=== PATIENT | male | born 1960 | race Caucasian/White ===

== ENCOUNTER 2020-12-27 07:55 | Day surgery (SDC) | payer BC ==
[2020-12-27] MEDS ORDERED: Cyanocobalamin (Vitamin B12) 1,000 MCG/ML SDV IM ONE (08:00)
[2020-12-27] MEDS ORDERED: Propofol 200 MG/20 ML SDV ONE (08:05)
[2020-12-27] MEDS ORDERED: Midazolam 1 MG/ML 2 ML SDV ONE (08:05)
[2020-12-27] MEDS ORDERED: fentaNYL 100 MCG/2 ML SDV ONE (08:05)
[2020-12-27] MEDS ORDERED: Lactated Ringers 1,000 ML IV SCH (09:00)
[2020-12-27] MEDS ORDERED: Glycopyrrolate 0.2 MG/ML 2 ML SDV IVPUSH ONE (09:30)
--- NOTE | 2020-12-31 10:23 | OR ---
DATE OF PROCEDURE: 12/27/2020 SURGEON: Errol Hicks MD PREOPERATIVE DIAGNOSIS: History of previous gastric stapling with recurrent severe morbid obesity. POSTOPERATIVE DIAGNOSIS: Previously performed gastric partitioning procedure with complete destruction of staple line with attendant recurrence of morbid obesity. OPERATIVE PROCEDURE: Esophagogastroduodenoscopy with antral biopsies for CLOtest. ANESTHESIA: IV sedation. INDICATIONS FOR PROCEDURE: This is a 60-year-old status post gastric partitioning procedure done in [place], [place] in 1981. He has had weight regain problems and plan is to proceed with upper endoscopy investigate his upper GI anatomy. Potential risks including bleeding and perforation were discussed, and the patient wishes to proceed. DETAILS OF PROCEDURE: The patient was taken to the operating room and placed in a left lateral decubitus position. IV sedation was administered after which the upper GI endoscope was passed orally through the length of the esophagus and the stomach with retroflexion view of the fundus, thereafter through the pyloric channel and into the proximal duodenum. Findings included some sutures placed in the middle of the stomach where he likely has had the opening at his gastric partitioning location. However, there was a complete disruption of the staple line with there essentially being no partitioning whatsoever in the stomach stitches appearing to be "normal." Other than for some antral gastritis, pyloric channel and visualized portion of the duodenum were unremarkable. Biopsies were obtained from the antrum and sent for CLOtest for H. pylori. Minimal bleeding from the biopsy site was seen and the procedure then concluded. The patient was taken to the recovery room in satisfactory condition. Errol Hicks MD /[id number]
== END 2020-12-27 11:25 | disposition home or self-care (01) ==
LOC: JP.SDS 07:55
PROVIDERS: ATTEND Surgery
DX: K91.89 Other postprocedural complications and disorders of digestive system (principal); K29.70 Gastritis, unspecified, without bleeding; E66.01 Morbid (severe) obesity due to excess calories; I10 Essential (primary) hypertension; G47.33 Obstructive sleep apnea (adult) (pediatric); Z91.013 Allergy to seafood; Z98.890 Other specified postprocedural states; Z79.899 Other long term (current) drug therapy; Z87.890 Personal history of sex reassignment; Z68.42 Body mass index [BMI] 45.0-49.9, adult
CPT/HCPCS: 43239; 87081; J2250; J2704; J3010; J3420; J3490; J7120

== ENCOUNTER 2021-03-25 07:15 | Inpatient (IN) | payer BC ==
[2021-03-25] MEDS ORDERED: cefOXitin 2 GM Vial ONE (08:26)
[2021-03-25] MEDS ORDERED: Celecoxib 200 MG Cap PO ONE (09:50)
[2021-03-25] MEDS ORDERED: Scopolamine 1.5 MG Transdermal Patch TOP SCH (09:50)
[2021-03-25] MEDS ORDERED: Acetaminophen 500 MG Tab PO ONE (09:50)
[2021-03-25] MEDS ORDERED: Neostigmine Methylsulfate 1 MG/ML 5 ML Syringe ONE (10:07)
[2021-03-25] MEDS ORDERED: Dexamethasone 4 MG/ML SDV ONE (10:07)
[2021-03-25] MEDS ORDERED: Ondansetron 4 MG/2 ML SDV ONE (10:07)
[2021-03-25] MEDS ORDERED: Rocuronium 50 MG/5 ML Vial ONE ×2 (10:07→14:20)
[2021-03-25] MEDS ORDERED: Propofol 200 MG/20 ML SDV ONE (10:07)
[2021-03-25] MEDS ORDERED: Succinylcholine 200 MG/10 ML MDV ONE (10:07)
[2021-03-25] MEDS ORDERED: fentaNYL 250 MCG/5 ML SDV ONE ×2 (10:07→13:26)
[2021-03-25] MEDS ORDERED: Glycopyrrolate 0.2 MG/ML 5 ML MDV ONE (10:07)
[2021-03-25] MEDS: Dextrose 5%-Lactated Ringers 1,000 ML IV SCH ×3 (10:19→22:51)
[2021-03-25] MEDS ORDERED: Magnesium Sulfate 4.8 GM in Sodium Chloride 0.9% 250 ML IV ONE ×2 (11:45)
[2021-03-25] MEDS ORDERED: Magnesium Sulfate 4.5 GM in Sodium Chloride 0.9% 100 ML IV SCH ×2 (11:45)
[2021-03-25] MEDS ORDERED: Ketamine 500 MG/5 ML MDV IV SCH (11:45)
[2021-03-25] MEDS ORDERED: Ketamine 50 MG in Sodium Chloride 0.9% 49.5 ML IV SCH (11:45)
[2021-03-25] MEDS: cefOXitin 2 GM in Sodium Chloride 0.9% 50 ML IV ONE ×2 (13:07→18:01)
[2021-03-25] MEDS ORDERED: HYDROmorphone/Normal Saline 15 MG/30 ML PCA IV PRN (17:20)
[2021-03-25] MEDS ORDERED: Naloxone 0.4 MG/ML SDV IV PRN (18:00)
[2021-03-25] MEDS ORDERED: Lactated Ringers 750 ML IV ONE (20:29)
[2021-03-25] MEDS ORDERED: Tranexamic Acid 1,000 MG in Sodium Chloride 0.9% 100 ML IV ONE ×2 (20:30→22:30)
[2021-03-25] MEDS ORDERED: Ondansetron 4 MG/2 ML SDV IVPUSH PRN (21:11)
[2021-03-25] MEDS ORDERED: diphenhydrAMINE 50 MG/ML SDV IVPUSH PRN (21:11)
[2021-03-25] MEDS ORDERED: Cyclobenzaprine 10 MG Tab PO PRN (21:11)
[2021-03-25] MEDS ORDERED: Metoclopramide 10 MG/2 ML SDV IV PRN (21:11)
[2021-03-25] MEDS ORDERED: Labetalol 100 MG/20 ML MDV IVPUSH PRN (21:11)
[2021-03-25] MEDS ORDERED: Calcium Gluconate 10% 1 GM/10 ML SDV IVPUSH PRN (21:11)
[2021-03-25] MEDS ORDERED: MVI, Adult with Vitamin K 10 ML, Thiamine 200 MG, Chromium/Copper/Mang/Selen/Zn 1 ML in... IV SCH ×4 (21:13)
[2021-03-25] MEDS ORDERED: Acetaminophen 500 MG Tab PO SCH (21:15)
[2021-03-25] MEDS: Acetaminophen Soln 650 MG/20.3 ML UD Cup PO SCH (22:03)
[2021-03-25] MEDS: cefOXitin 2 GM in Sodium Chloride 0.9% 50 ML IV SCH (22:03)
[2021-03-25] MEDS ORDERED: Coagulation Factor VIIa Recombinant (per MCG) 2 MG Vial IVPUSH ONE ×3 (23:17→23:45)
[2021-03-26] MEDS ORDERED: Iopamidol 612 MG/ML 50 ML SDV PO STA (04:25)
[2021-03-26] MEDS: cefOXitin 2 GM in Sodium Chloride 0.9% 50 ML IV SCH ×4 (04:30→21:15)
[2021-03-26] MEDS: Acetaminophen Soln 650 MG/20.3 ML UD Cup PO SCH ×3 (04:56→21:15)
[2021-03-26] MEDS: Dextrose 5%-Lactated Ringers 1,000 ML IV SCH ×3 (05:03→17:51)
--- NOTE | 2021-03-26 06:09 | CRLCR ---
Indication: Nkechi-en-Y gastric bypass surgery Technique: Upper GI 3 views Comparison: None Findings/Impression: Oral contrast passes through the gastric bypass into small bowel. No obstructive changes. No sign of contrast extravasation/leak. Dictated by Deon Shelley MD @ 03/26/2021 6:07:[address] Deon Shelley @ Mar 26 2021 6:07AM
[2021-03-26] MEDS ORDERED: Acetaminophen 500 MG Tab PO PRN (08:00)
[2021-03-26] MEDS ORDERED: Labetalol 20 MG/4 ML Syringe IVPUSH PRN (08:00)
[2021-03-26] MEDS ORDERED: Ondansetron 4 MG Tab.DIS PO PRN (08:03)
[2021-03-26] MEDS ORDERED: Pantoprazole 40 MG Vial IVPUSH SCH (09:00)
[2021-03-26] MEDS: SCOPOLAMINE PATCH CHECK TOP SCH (09:04)
[2021-03-26] MEDS: Celecoxib 200 MG Cap PO SCH ×3 (09:05→20:25)
[2021-03-26] MEDS: Chlorthalidone 25 MG Tab PO SCH (09:23)
[2021-03-26] MEDS: Losartan 50 MG Tab PO SCH ×2 (09:23→09:24)
[2021-03-26] MEDS: MVI, Adult with Vitamin K 10 ML, Thiamine 200 MG, Chromium/Copper/Mang/Selen/Zn 1 ML in... IV SCH ×4 (12:23)
--- NOTE | 2021-03-26 12:23 | PN ---
DATE OF SERVICE: 03/26/2021 SUBJECTIVE: Iván is postop day 1. His upper GI looked good. Oral intake 650. Urine output via Cisneros catheter is 1415. TYRELL drain was 242. He was hypotensive during the night. Blood pressure was 60/30. He was given tranexamic acid and factor VII and 1 unit of packed red blood cells. This morning, his vital signs are stable. Pain is controlled. He states he does not have much for pain. Hemoglobin on admission was 15.2, and this morning at 0400 was 12.1. Creatinine went up to 1.4, glucose was 189. He has no questions or concerns today. OBJECTIVE: GENERAL: Iván Aguilar is a pleasant 60-year-old male. He is alert and oriented. VITAL SIGNS: TPR 97.5, 80, 18, blood pressure 94/72. HEENT: Negative. NECK: Supple. HEART: Regular rate and rhythm. LUNGS: Clear. ABDOMEN: Dressing dry and intact. Aquacel is on. He does have a TYRELL drain, which is dark red and put out 242 over the past 24 hours. EXTREMITIES: Without peripheral edema. ASSESSMENT: 1. Exploratory laparotomy with lysis of adhesions. 2. Esophagogastrectomy with Nkechi-en-Y. 3. Esophagojejunostomy. 4. Small bowel resection. 5. 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 POSTOPERATIVE DIAGNOSES: 1. Morbid obesity, status post previous gastric stapling with severe inflammation in the proximal stomach, esophagogastrojejunostomy. 2. Area of small bowel deserosalized with takedown of adhesions. 3. Ectopic xiphoid, upper aspect of previous incision. PLAN: 1. Decrease IV to 100 mL/hr at 4 p.m. 2. Check CBC, CMP, mag, phos, BNP in a.m. 3. Continue step-1 gastric bypass diet. 4. Start aspirin 81 mg today, and communication order is written to ask regarding heparin in the morning. 5. Leave Cisneros catheter in for accurate intake and output. 6. We will evaluate p.r.n. or in a.m. Angela Conner PA-C /[id number]
[2021-03-26] MEDS: Aspirin 81 MG Tab.Chew PO SCH (20:25)
[2021-03-27] MEDS: cefOXitin 2 GM in Sodium Chloride 0.9% 50 ML IV SCH ×3 (02:44→14:54)
[2021-03-27] MEDS: Acetaminophen Soln 650 MG/20.3 ML UD Cup PO SCH ×3 (04:35→21:54)
[2021-03-27] MEDS: Dextrose 5%-Lactated Ringers 1,000 ML IV SCH (05:01)
[2021-03-27] MEDS: Pantoprazole 40 MG Delayed-Release Granules 1 Packet PO SCH (07:34)
[2021-03-27] MEDS: HYDROmorphone 2 MG Tab PO PRN ×4 (07:48→21:57)
[2021-03-27] MEDS ORDERED: Cyanocobalamin (Vitamin B12) 1,000 MCG/ML SDV IM ONE (09:00)
[2021-03-27] MEDS: Losartan 50 MG Tab PO SCH (09:55)
[2021-03-27] MEDS: Docusate Sodium 100 MG Cap PO SCH ×2 (09:57→21:54)
[2021-03-27] MEDS: Bisacodyl 5 MG Tab PO SCH ×2 (09:57→21:54)
[2021-03-27] MEDS: Chlorthalidone 25 MG Tab PO SCH (09:57)
[2021-03-27] MEDS: Celecoxib 200 MG Cap PO SCH ×2 (09:57→21:54)
[2021-03-27] MEDS: MVI, Adult with Vitamin K 10 ML, Thiamine 200 MG, Chromium/Copper/Mang/Selen/Zn 1 ML in... IV SCH ×4 (10:00)
[2021-03-27] MEDS: SCOPOLAMINE PATCH CHECK TOP SCH (10:07)
--- NOTE | 2021-03-27 14:11 | PN ---
DATE OF SERVICE: 03/27/2021 SUBJECTIVE: Iván states he is doing much better today. Hemoglobin 9.2. Oral intake 1840. Urine output via Cisneros catheter is 2100. TYRELL drain put out 135 of a light red drainage. REVIEW OF SYSTEMS: Remainder of review of systems negative for any pertinent positives and negatives. OBJECTIVE: GENERAL: Iván Aguilar is a pleasant 60-year-old female. VITAL SIGNS: TPR 99.2, 78, 16, blood pressure 131/45. HEENT: Negative. NECK: Supple. HEART: Regular rate and rhythm. LUNGS: Clear. ABDOMEN: Aquacel dressing is on. TYRELL drain as above. Abdominal binder is on. EXTREMITIES: Without peripheral edema. ASSESSMENT: 1. Exploratory laparotomy with lysis of adhesions. 2. Esophagogastrectomy with Nkechi-en-Y. 3. Esophagojejunostomy. 4. Small-bowel resection. 5. Reduction of ectopic xiphoid process of abdominal wall. POSTOPERATIVE DIAGNOSES: 1. Morbid obesity, status post previous gastric stapling with severe inflammation in the proximal stomach, esophagogastrojejunostomy. 2. Area of small bowel deserosalized with takedown of adhesions. 3. Ectopic xiphoid, upper aspect of previous incision. PLAN: 1. Discontinue NIGHT SHIFT SUPERVISOR and continuous pulse ox. 2. Dilaudid 2 to 4 mg every 4 hours p.r.n. pain. 3. Discontinue Cisneros catheter. 4. Step 2 gastric bypass diet without cereal. 5. Dulcolax tablets 10 mg b.i.d. 6. Colace 100 mg p.o. b.i.d. 7. Continue use of incentive spirometer. 8. We will evaluate p.r.n. or in a.m. Angela Conner PA-C /[id number]
[2021-03-27] MEDS ORDERED: Polyethylene Glycol 3350 Powder 17 GM Packet PO PRN (14:40)
[2021-03-27] MEDS: Aspirin 81 MG Tab.Chew PO SCH (21:54)
[2021-03-28] MEDS: Acetaminophen Soln 650 MG/20.3 ML UD Cup PO SCH ×3 (05:41→20:37)
[2021-03-28] MEDS: Pantoprazole 40 MG Delayed-Release Granules 1 Packet PO SCH (07:31)
[2021-03-28] MEDS: HYDROmorphone 2 MG Tab PO PRN (07:36)
[2021-03-28] MEDS: Celecoxib 200 MG Cap PO SCH ×2 (08:36→20:37)
[2021-03-28] MEDS: SCOPOLAMINE PATCH CHECK TOP SCH (08:36)
[2021-03-28] MEDS: Bisacodyl 5 MG Tab PO SCH ×2 (08:36→20:37)
[2021-03-28] MEDS: Chlorthalidone 25 MG Tab PO SCH (08:36)
[2021-03-28] MEDS: Losartan 50 MG Tab PO SCH (08:36)
[2021-03-28] MEDS: Docusate Sodium 100 MG Cap PO SCH ×2 (08:36→20:37)
--- NOTE | 2021-03-28 08:44 | PN ---
DATE OF SERVICE: 03/28/2021 SUBJECTIVE: Iván had a total oral intake of 2140. Urine output 1200. TYRELL drain put out 70 mL of a light red drainage. Vital signs have been stable. Lab reports this morning show hemoglobin of 8.5 and potassium 3.5. REVIEW OF SYSTEMS: Remainder of review of systems negative for any pertinent positives and negatives. OBJECTIVE: GENERAL: Iván Aguilar is a pleasant 60-year-old male. He is alert and orientated. He sitting up in the chair. VITAL SIGNS: TPR; 97.5, 72, 14, and blood pressure 123/57. HEENT: Negative. NECK: Supple. HEART: Regular rate and rhythm. LUNGS: Clear. ABDOMEN: Aquacel dressings on dry and intact. EXTREMITIES: Without peripheral edema. ASSESSMENT: 1. Exploratory laparotomy with lysis of adhesions. 2. Esophagogastrectomy with Nkechi-en-Y. 3. Esophagojejunostomy. 4. Small bowel resection. 5. Reduction of ectopic xiphoid process of abdominal wall. POSTOPERATIVE DIAGNOSES: 1. Morbid obesity, status post previous gastric stapling with severe inflammation in the proximal stomach, esophagogastrojujenostomy. 2. Area of small bowel deserosalization with takedown of adhesions. 3. Ectopics, xiphoid, upper aspect of previous incision. 4. Date of procedure: 03/25/2021. PLAN: 1. Give 1 unit of packed red blood cells. 2. K-Phos 45 millimoles IV 1 time. 3. Check CBC, CMP, mag, phos, and BNP in the a.m. 4. We will evaluate p.r.n. or in the a.m. Angela Conner PA-C /[id number]
[2021-03-28] MEDS: Potassium Phos in 0.9 % NaCl 15 MMOL in Premix Bag 1 BAG IV SCH ×6 (10:49→15:47)
[2021-03-28] MEDS: Aspirin 81 MG Tab.Chew PO SCH (20:37)
[2021-03-29] MEDS: Acetaminophen Soln 650 MG/20.3 ML UD Cup PO SCH (04:43)
[2021-03-29] MEDS: Pantoprazole 40 MG Delayed-Release Granules 1 Packet PO SCH (07:38)
[2021-03-29] MEDS: Docusate Sodium 100 MG Cap PO SCH (08:13)
[2021-03-29] MEDS: Chlorthalidone 25 MG Tab PO SCH (08:13)
[2021-03-29] MEDS: Losartan 50 MG Tab PO SCH (08:13)
[2021-03-29] MEDS: Bisacodyl 5 MG Tab PO SCH (08:13)
[2021-03-29] MEDS: Celecoxib 200 MG Cap PO SCH (08:13)
--- NOTE | 2021-03-29 10:40 | DISCH ---
ADMISSION DIAGNOSES: 1. Morbid obesity. 2. Body mass index 46.8. 3. Obstructive sleep apnea. 4. Hypertension. DISCHARGE DIAGNOSES: 1. Exploratory laparotomy with lysis of adhesions. 2. Esophagogastrectomy with Nkechi-en-Y. 3. Esophagojejunostomy. 4. Small bowel resection. 5. 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 POSTOPERATIVE DIAGNOSES: 1. Morbid obesity status post gastric stapling with severe inflammation in the proximal stomach. 2. Area of small bowel deserosalization with takedown of adhesions. 3. Ectopic xiphoid upper aspect of previous incision. Date of procedure 03/25/2021. Surgeon: Errol Hicks MD. HISTORY: Iván Aguilar is a pleasant 60-year-old male who had a previous gastric stapling with weight regain. After preoperative evaluation and discussion of possible risks and possible complications, he wished to proceed with surgical procedure. HOSPITAL COURSE: Iván had his surgery on 03/25/2021. He had increased bleeding operative night and was given factor VII, tranexamic acid, and 1 unit of packed red blood cells. Postop day 1, vital signs were stable. He was alert, oriented. Pain was controlled. Hemoglobin on admission was 15.2 and was 12.1, 1st postop day. Creatinine was 1.4. His upper GI was normal. He was started on a step-1 gastric bypass diet. IV was decreased, and his heparin was decreased, but he was started on aspirin 1 daily. On postop day 2, his diet was advanced to step-2 gastric bypass diet without cereal. 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 He was started on oral pain medication and given bowel stimulation. Hemoglobin was 9. On postop day 3, his oral intake and output were adequate. Hemoglobin was 8.5 and potassium was 3.5. He was given 1 unit of packed red blood cells, K-Phos 45 mmol. On 03/29/2021, he was able to be discharged to home. Vital signs stable. Activity good and he received adequate nutritional education. Hemoglobin on day of discharge was 10. PHYSICAL EXAMINATION: GENERAL: Iván Aguilar is a pleasant 60-year-old male. He is alert and oriented. VITAL SIGNS: TPR is 95.7, 72, 16, blood pressure 165/81. HEENT: Negative. NECK: Supple. HEART: Regular rate and rhythm. LUNGS: Clear. ABDOMEN: Aquacel dressings on. Abdominal binder is on. TYRELL drain will be removed prior to discharge. EXTREMITIES: Without peripheral edema. DISPOSITION: Discharged to home. CONDITION: Stable and improving. FOLLOWUP APPOINTMENT: With Angela Conner PA-C, on 04/04/2021 at 9 a.m. To check a CBC prior to that appointment. HOME MEDICATIONS: Zofran ODT 4 mg p.o. q.4 hours p.r.n. nausea, #30. He is to start taking Celebrex 200 mg p.o. b.i.d., Tylenol 1000 mg q.8 hours for pain. He is to resume Cozaar 100 mg p.o. daily, Crestor 5 mg at bedtime, and aspirin 81 mg at bedtime. DIET: Step-2 gastric bypass diet with no cereal for 2 weeks. Drink 8 to 10 glasses of water a day. ACTIVITY: No lifting greater than 10 pounds for 6 weeks. OTHER ACTIVITY: Walk 6 times daily. Driving: Do not drive for 1 week. Shower/bathing: May shower. Wound incision care: Keep operative site clean and dry. Wear abdominal binder for 6 weeks if tolerated. Take off Aquacel dressing in 3 days on 04/01/2021. Notify provider if any fever, increased pain, swelling, redness, drainage, nausea, or vomiting. /[id number]
--- NOTE | 2021-04-01 15:15 | OR ---
DATE OF PROCEDURE: 03/25/2021 SURGEON: Errol Hicks MD PREOPERATIVE DIAGNOSIS: Morbid obesity, status post previous gastric partitioning. POSTOPERATIVE DIAGNOSES: 1. Morbid obesity, status post previous gastric partitioning with severe inflammation of proximal stomach and esophagogastric junction. 2. Area of small bowel deserosalization after takedown of dense adhesions. 3. Ectopic xiphoid bone development in the upper aspect of previous midline incision. PROCEDURES PERFORMED: Exploratory laparotomy with extensive lysis of adhesions and: 1. a. Esophagogastrectomy with Nkechi-en-Y esophagojejunostomy. b. Small bowel resection. c. Resection of ectopic xiphoid bone extending from the xiphoid down to the abdominal wall ([id number]). ANESTHESIA: General. RACECOURSE BARRIER ATTENDANT: Angela Conner PA-C INDICATIONS FOR PROCEDURE: A 60-year-old male presenting with persistent morbid obesity, status post previous gastric partitioning procedure done in the . This has been associated with quite a bit in the way of worsening symptoms, and morbid obesity. The plan is to proceed with an open laparotomy with formation of Nkechi-en-Y gastric bypass. The potential risks of the procedure including bleeding, infection, injury to underlying viscera, leaks from various GI tract closures, possible need to extend the proximal end of resection up to the level of the esophagus depending on the quality of the tissues at the esophagogastric junction as well as the remote possibility of cardiopulmonary, septic, or hemorrhagic complications leading to were discussed, and the patient wishes to proceed. DETAILS OF PROCEDURE: The patient was taken to the operating room and placed in a supine position. After general endotracheal anesthesia was induced, a Cisneros catheter was inserted and the abdomen prepped and draped. The previous midline incision was then made from the xiphoid to just above the umbilicus. It was carried down through the full-thickness of the abdominal wall. In the proximal end of the incision, over a length of around 10 to 12 cm, there was ectopic bone formation extending from the xiphoid. This would be a healing some times to see if there has been an injury at the xiphoid at the time of the previous incision, and has healing then becomes overly abundant and extends downward onto the incision. This bony structure was then taken back up more or less flush with the previous expected end of the xiphoid where it was divided, and a small amount of normal pre- existing xiphoid along with the ectopic bone extending below that were from some attachments to the soft tissues and delivered from the field. The incision was then extended further through the remainder of the abdominal wall fascia. At this point, quite extensive adhesions were encountered. These took roughly an hour to get freed up from the surrounding soft tissues, and eventually, then the area of gastric partitioning and surrounding areas were freed up of adhesions. An Skinny tube was passed orally per Anesthesia and the area of the esophagogastric junction then encircled. The previous partitioning procedure appeared to come up more or less flush with the esophagogastric junction on the lateral side, i.e., in the area of the angle of His. Upon dissection of this area, this was extremely inflamed and thinned out, and it was felt that the proximal most stomach typically used for Nkechi-en-Y gastric bypass would not be safe to use as a proximal anastomotic site. Given this, the Skinny tube was pulled back and the distal esophagus divided with 2 firings of the ADA black load. A portion of the proximal stomach was then excised to move the area of the gastric partitioning so as to avoid any blind segments of stomach in that tissue consisting of esophagogastrectomy was then delivered from the field. The area of the ligament of Treitz was then identified and the small bowel then traced out 60 cm distal to that point. At that level, there was a segment of small bowel that had become devascularized and deserosalized secondary to takedown of adhesions in that area. A segment of small bowel was then resected, and the proximal end of this was then used for the end of the biliopancreatic limb and the distal end beginning of the Nkechi limb. Small bowel was then traced out additional 125 cm where the [id number] enteroenterostomy was accomplished with internal firing of the Endo-ADA 60 mm stapler. Common opening was then closed transversely with the same stapler, angles anastomosed, and mesenteric defect approximated with some 3-0 Vicryl stitch. A retrocolic mesenteric opening was then constructed with a combination of blunt and cautery dissection, and the Nkechi limb then came up to the level of the divided esophagus without tension. The anvil of a 25 mm EEA stapler was attached to a [place] sump type tube. The latter was brought down through the mouth and taken out through a small opening in the divided esophagus, and the main body of the EEA stapler was then placed through an opening on the end of the small bowel, brought up the anvil, united with it, thus creating the esophagojejunostomy. Upon removal of the stapler, double donuts of mucosa were noted within it and the small bowel was closed off with a vascular staple line. The esophagojejunostomy was reinforced on its anterior 2/3rds with a 3-0 Vicryl seromuscular stitch and subsequently then with fibrin sealant. The point where the small bowel passed through the transverse mesocolon was then affixed with several interrupted sutures of 3-0 Vicryl stitch, and the jejunojejunostomy was then also reinforced with some fibrin sealant. The abdomen was irrigated with antibiotic- containing saline solution. Two Cliff-Lynn drains were then placed through stab wounds in the left subcostal area and positioned at and around the esophagojejunostomy, from there, up into the splenic fossa. The midline fascia was then approximated with a #2 Vicryl stitch, subcutaneous tissue with 4-0 Vicryl stitch, and the skin with keely. A dressing was applied. The patient was taken to the recovery room in satisfactory condition. Prior to closure, bilateral transversus abdominis plane blocks had also been placed. Physician assistant real estate manager, Angela Conner, played an essential role in assisting in this case, helping to position the patient, retract structures as needed, as well as suturing and cutting sutures when indicated. Her presence improved patient safety and decreased operative time. Errol Hicks MD /[id number]
== END 2021-03-29 08:39 | disposition home or self-care (01) | DRG 950 ==
LOC: EDSTATUS 07:15 → JP.SDS 09:22 → JP.SDSSCHI 16:59 → JP.2SS 17:00
PROVIDERS: ADMIT Surgery; ATTEND Surgery
PROC: 0DT60ZZ Resection of Stomach, Open Approach (ICD-10-PCS; principal; 2021-03-25)
PROC: 0DT80ZZ Resection of Small Intestine, Open Approach (ICD-10-PCS; principal; 2021-03-25)
PROC: 0PB00ZZ Excision of Sternum, Open Approach (ICD-10-PCS; principal; 2021-03-25)
PROC: 0D150ZA Bypass Esophagus to Jejunum, Open Approach (ICD-10-PCS; principal; 2021-03-25)
PROC: 0DT Gastrointestinal System, Resection (ICD-10-PCS; principal; 2021-03-25)
PROC: 0DN80ZZ Release Small Intestine, Open Approach (ICD-10-PCS; principal; 2021-03-25)
DX: E66.01 Morbid (severe) obesity due to excess calories (principal); Z68.42 Body mass index [BMI] 45.0-49.9, adult; I10 Essential (primary) hypertension; G47.33 Obstructive sleep apnea (adult) (pediatric); Z88.8 Allergy status to other drugs, medicaments and biological substances; E78.5 Hyperlipidemia, unspecified
CPT/HCPCS: 36415; 36430; 74240; 80053; 83735; 83880; 84100; 85018; 85025; 85027; 86850; 86900; 86901; 86920; 86922; 88304; 88307; 88311; 94762; A9270-GY; C9113; J0171; J0330; J0694; J1100; J1170; J2405; J2704; J2710; J2795; J3010; J3411; J3420; J3475; J3490; J7050; J7120; J7121; J7189; P9016; Q9967

== ENCOUNTER 2021-04-15 13:08 | Inpatient (IN) | payer BC ==
[2021-04-15] MEDS ORDERED: Ondansetron 4 MG Tab.DIS PO PRN (13:33)
[2021-04-15] MEDS ORDERED: Ondansetron 4 MG/2 ML SDV IVPUSH PRN (13:36)
[2021-04-15] MEDS ORDERED: Acetaminophen 325 MG Tab PO PRN (13:38)
[2021-04-15] MEDS ORDERED: Bisacodyl 5 MG Tab PO SCH (14:00)
[2021-04-15] MEDS: Dextrose 5%-Lactated Ringers 1,000 ML IV SCH (14:06)
[2021-04-15] MEDS: Meropenem 1 GM in Sodium Chloride 0.9% 100 ML IV SCH ×2 (14:22→21:08)
[2021-04-15] MEDS: Linezolid 600 MG in Premix Bag 1 BAG IV SCH (14:56)
[2021-04-15] MEDS ORDERED: MVI, Adult with Vitamin K 10 ML, Thiamine 100 MG, Magnesium Sulfate 2 GM, Folic Acid 1 ... IV ONE ×10 (16:00)
[2021-04-15] MEDS: Lactobacillus Rhamnosus GG (Probiotic) Cap PO SCH (21:07)
[2021-04-15] MEDS: Aspirin 81 MG Tab.Chew PO SCH (21:07)
[2021-04-15] MEDS: Bisacodyl 5 MG Tab PO SCH (21:07)
[2021-04-15] MEDS: Rosuvastatin 10 MG Tab PO SCH (21:08)
[2021-04-15] MEDS: Pantoprazole 40 MG Vial IVPUSH SCH (21:08)
[2021-04-16] MEDS ORDERED: Acetaminophen Soln 650 MG/20.3 ML UD Cup PO PRN (00:16)
[2021-04-16] MEDS: Linezolid 600 MG in Premix Bag 1 BAG IV SCH ×2 (02:39→15:57)
[2021-04-16] MEDS: Dextrose 5%-Lactated Ringers 1,000 ML IV SCH ×2 (02:43→10:18)
[2021-04-16] MEDS: Meropenem 1 GM in Sodium Chloride 0.9% 100 ML IV SCH ×3 (05:00→21:06)
[2021-04-16] MEDS: Potassium Chloride 20 MEQ, Lidocaine 1% 2 ML in Sodium Chloride 0.9% 100 ML IV SCH ×2 (07:21→09:27)
[2021-04-16] MEDS ORDERED: fentaNYL 250 MCG/5 ML SDV ONE (07:30)
[2021-04-16] MEDS ORDERED: Propofol 200 MG/20 ML SDV ONE (07:31)
[2021-04-16] MEDS ORDERED: Succinylcholine 200 MG/10 ML MDV ONE (07:31)
[2021-04-16] MEDS ORDERED: Neostigmine Methylsulfate 1 MG/ML 5 ML Syringe ONE (07:31)
[2021-04-16] MEDS ORDERED: Rocuronium 50 MG/5 ML Vial ONE (07:31)
[2021-04-16] MEDS ORDERED: Glycopyrrolate 0.2 MG/ML 5 ML MDV ONE (07:31)
[2021-04-16] MEDS ORDERED: Ondansetron 4 MG/2 ML SDV ONE (07:31)
[2021-04-16] MEDS ORDERED: Dexamethasone 4 MG/ML SDV ONE (07:31)
[2021-04-16] MEDS ORDERED: Meropenem 500 MG SDV ONE (07:35)
[2021-04-16] MEDS ORDERED: Lidocaine 1% with EPINEPHrine 1:100,000 50 ML MDV ONE (07:37)
[2021-04-16] MEDS ORDERED: Ondansetron 4 MG/2 ML SDV IVPUSH PRN (11:40)
[2021-04-16] MEDS ORDERED: diphenhydrAMINE 25 MG Cap PO PRN (11:40)
[2021-04-16] MEDS ORDERED: Naloxone 0.4 MG/ML SDV IVPUSH PRN (11:40)
[2021-04-16] MEDS ORDERED: diphenhydrAMINE 50 MG/ML SDV IVPUSH PRN (11:40)
[2021-04-16] MEDS ORDERED: HYDROmorphone/Normal Saline 15 MG/30 ML PCA IV PRN (11:40)
[2021-04-16] MEDS ORDERED: Naloxone 0.4 MG/ML SDV IV PRN (12:00)
[2021-04-16] MEDS: Potassium Phos in 0.9 % NaCl 15 MMOL in Premix Bag 1 BAG IV SCH ×6 (12:51→19:24)
[2021-04-16] MEDS: Pantoprazole 40 MG Vial IVPUSH SCH ×2 (14:15→21:06)
[2021-04-16] MEDS: Chlorthalidone 25 MG Tab PO SCH (14:24)
[2021-04-16] MEDS: Losartan 50 MG Tab PO SCH (14:24)
[2021-04-16] MEDS: Bisacodyl 5 MG Tab PO SCH (14:25)
[2021-04-16] MEDS: Dextrose 5%-Lactated Ringers 1,000 ML with MVI, Adult with Vitamin K 10 ML, Zinc/Copper... IV SCH ×4 (15:02)
[2021-04-16] MEDS: Lactobacillus Rhamnosus GG (Probiotic) Cap PO SCH ×2 (15:09→21:06)
--- NOTE | 2021-04-16 15:23 | PN ---
DATE OF SERVICE: 04/16/2021 SUBJECTIVE: Iván was admitted yesterday for fever of 101 and redness at his incision site. He did have a temp max of 101.1 around midnight. He was given Tylenol, it did go down to 98.5. Labs this morning; hemoglobin 10.9, potassium is 2.9, chloride is 133, and phosphorus 2.9. He reports he is feeling better once the IV antibiotics started. After rounds this morning, his incision did spontaneously start to drain a cloudy corcoran drainage with foul odor. OBJECTIVE: GENERAL: Iván Aguilar is a 60-year-old male. He is alert and orientated. VITAL SIGNS: TPR is 97.1, 66, 18; blood pressure 110/49. HEENT: Negative. NECK: Supple. HEART: Regular rate and rhythm. LUNGS: Clear. ABDOMEN: The redness has decreased around the incision site. It is currently draining a cloudy corcoran foul-smelling discharge, nontender. EXTREMITIES: Without peripheral edema. ASSESSMENT: 1. Fever. 2. Abdominal wall infection. PLAN: 1. I have consent signed for incision and drainage of abdominal incision with IV and local sedation. Case to follow, 04/16/2021. Surgeon: Errol Hicks MD. KCl 40 mEq IV now. 2. K-Phos 45 mEq IV 1 time. N.p.o. We will evaluate p.r.n. and orders to be written post procedure. Labs ordered in the morning; CBC, CMP, mag, and phos. We will evaluate p.r.n. or in a.m. Angela Conner PA-C /[id number]
[2021-04-16] MEDS ORDERED: HYDROmorphone 2 MG Tab PO PRN (17:47)
[2021-04-16] MEDS: Rosuvastatin 10 MG Tab PO SCH (21:05)
[2021-04-16] MEDS: Aspirin 81 MG Tab.Chew PO SCH (21:06)
[2021-04-17] MEDS: Dextrose 5%-Lactated Ringers 1,000 ML with MVI, Adult with Vitamin K 10 ML, Zinc/Copper... IV SCH ×8 (00:07→08:03)
[2021-04-17] MEDS: Linezolid 600 MG in Premix Bag 1 BAG IV SCH ×2 (03:07→16:54)
[2021-04-17] MEDS: Meropenem 1 GM in Sodium Chloride 0.9% 100 ML IV SCH ×3 (05:50→22:31)
[2021-04-17] MEDS: Chlorthalidone 25 MG Tab PO SCH (09:09)
[2021-04-17] MEDS: Losartan 50 MG Tab PO SCH (09:09)
[2021-04-17] MEDS: Pantoprazole 40 MG Vial IVPUSH SCH (09:10)
[2021-04-17] MEDS: Lactobacillus Rhamnosus GG (Probiotic) Cap PO SCH ×2 (09:10→20:01)
--- NOTE | 2021-04-17 09:15 | PN ---
DATE OF SERVICE: 04/17/2021 SUBJECTIVE: Iván is postop day #1. He reports he has no pain. He has been up ambulating and has been afebrile. REVIEW OF SYSTEMS: Remainder of review of systems negative for any pertinent positives and negatives. OBJECTIVE: GENERAL: Iván Aguilar is a 60-year-old male. He is alert and orientated. VITAL SIGNS: TPR 95, 47, 18, blood pressure 94/49. HEENT: Negative. NECK: Supple. HEART: Regular rate and rhythm. LUNGS: Clear. ABDOMEN: Dressings dry and intact. Abdominal binder is on. EXTREMITIES: Without peripheral edema. ASSESSMENT: Exploratory laparotomy with: 1. Drainage of intraabdominal abscess. 2. Closure of fascial dehiscence. POSTOPERATIVE DIAGNOSIS: Intraabdominal abscess associated with fascial dehiscence. Date of procedure: 04/16/2021. Surgeon: Errol Hciks MD. PLAN: 1. Check CBC, CMP, mag, and phos in a.m. 2. Dressing changes b.i.d., use dry 4x4s to pack dressing and cover with ABDs. 3. Step [address] of abdomen and pelvis with IV contrast only, 0400, 04/18/2021. Continue use of incentive spirometer. 5. We will evaluate p.r.n. or in a.m. Angela Conner PA-C /[id number]
[2021-04-17] MEDS: Pantoprazole 40 MG Tab.CR PO SCH (16:59)
[2021-04-17] MEDS: Dextrose 5%-Lactated Ringers 1,000 ML IV SCH (19:53)
[2021-04-17] MEDS: Aspirin 81 MG Tab.Chew PO SCH (20:01)
[2021-04-17] MEDS: Rosuvastatin 10 MG Tab PO SCH (20:02)
[2021-04-18] MEDS: Linezolid 600 MG in Premix Bag 1 BAG IV SCH ×2 (02:35→17:35)
[2021-04-18] MEDS ORDERED: Iopamidol 612 MG/ML 150 ML Bottle IV SCH (03:00)
--- NOTE | 2021-04-18 04:03 | CRLCT ---
For Patients: As a result of the Century Cures Act, medical imaging exams and procedure reports are released immediately into your electronic medical record. You may view this report before your referring provider. If you have questions, please contact your health care provider. INDICATION: Status post gastrectomy incision and drainage, follow-up abscess. TECHNIQUE: Axial images were obtained from the diaphragm to the pubic symphysis. Reformats were obtained in the coronal and sagittal plane. IV Contrast: 150 cc Isovue-300 Oral Contrast: None COMPARISON: Abdomen and pelvis CT 04/15/2020 FINDINGS: Lower chest: Trace bilateral pleural effusions with discoid atelectasis left lung base. Liver: Unremarkable. Normal in size and attenuation. No masses. Gallbladder and bile ducts: Cholelithiasis without pericholecystic inflammation. Spleen: Unremarkable. Normal in size without mass. Pancreas: Unremarkable. No mass or inflammation. Adrenal glands: Unremarkable. No nodules. Kidneys: Right renal cortical thinning with bilateral renal cysts. Nonobstructing nephrolithiasis. No hydronephrosis. Vasculature: Unremarkable. GI tract: The patient is status post gastroesophageal anastomosis. Several bubbles of air re- demonstrated near the left hemidiaphragm which may represent part of a blind loop or some extraluminal gas, however this is similar to the prior exam. There is apparent interval midline incision with evacuation of the abdominal wall abscess and placement of a drain in the abdominal wall as well as adjacent to the left lobe of the liver. There is some amorphous fluid near the margin of the left lobe of the liver which measures 11 millimeters (prior 34 mm). Distal to this small bowel and colon are decompressed. Appendix unremarkable. Pelvis: Trace free fluid. Bladder unremarkable. Bones: Degenerative disc disease lumbar spine. IMPRESSION: 1. Status post incision and drainage with placement of TYRELL drains at the abdominal wall and near the left lobe of the liver. Abdominal wall collection is decompressed while amorphous fluid near the left lobe of the liver is significantly decreased in size. 2. Other incidental findings as detailed above. Please note that all CT scans at this facility use dose modulation, iterative reconstruction, and/or weight-based dosing when appropriate to reduce radiation dose to as low as reasonably achievable. Dictated by Javon Roque MD @ 04/18/2021 4:01:[address] Javon Roque @ Apr 18 2021 4:01AM
[2021-04-18] MEDS: Meropenem 1 GM in Sodium Chloride 0.9% 100 ML IV SCH ×3 (05:49→22:29)
[2021-04-18] MEDS ORDERED: Potassium Chloride Riders 40 MEQ in Premix Bag 1 BAG IV ONE (07:30)
[2021-04-18] MEDS: Pantoprazole 40 MG Tab.CR PO SCH ×2 (07:32→17:35)
[2021-04-18] MEDS: Docusate Sodium 100 MG Cap PO PRN ×2 (07:36→20:45)
[2021-04-18] MEDS: Potassium Chloride 20 MEQ, Lidocaine 1% 2 ML in Sodium Chloride 0.9% 100 ML IV SCH ×2 (09:07→11:33)
[2021-04-18] MEDS: Losartan 50 MG Tab PO SCH ×2 (09:18→09:22)
[2021-04-18] MEDS: Chlorthalidone 25 MG Tab PO SCH ×2 (09:18→09:21)
[2021-04-18] MEDS: Lactobacillus Rhamnosus GG (Probiotic) Cap PO SCH ×2 (09:19→20:26)
[2021-04-18] MEDS: Dextrose 5%-Lactated Ringers 1,000 ML IV SCH ×2 (10:41→20:44)
--- NOTE | 2021-04-18 10:49 | PN ---
DATE OF SERVICE: 04/18/2021 SUBJECTIVE: Iván's TYRELL drains have turned kind of to a corcoran cloudy color, and they put out 40 and 70 respectively. Open incision has been packed twice a day. CT scan was done this morning and reviewed. Intake 1450, output 1950. Labs this morning, potassium was 3.5. He reports pain is controlled. Has no questions or concerns. OBJECTIVE: GENERAL: Iván Aguilar is a pleasant 60-year-old male. He is alert and orientated. VITAL SIGNS: TPR 95.6, 57, 18, blood pressure 127/84. HEENT: Negative. NECK: Supple. HEART: Regular rate and rhythm. LUNGS: Clear. ABDOMEN: Abdominal binder is on. Dressings dry and intact. TYRELL drains as above. EXTREMITIES: Without peripheral edema. ASSESSMENT: Exploratory laparotomy with: 1. Drainage of intraabdominal abscess. 2. Closure of fascial dehiscence. POSTOPERATIVE DIAGNOSIS: Intraabdominal abscess with associated fascial dehiscence. Date of surgery: 04/16/2021. Surgeon: Errol Hicks MD. PLAN: 1. Check CBC, CMP, mag, phos in a.m. 2. KCl 40 mEq IV. 3. Continue to pack open incision twice daily, may shower before dressing changes with incision open. 4. Discussion regarding home health care. Iván states his daughter, Erik, will help him with the TYRELL drains and open incision. Declines home health services today. 5. We will evaluate p.r.n. or in a.m. Angela Conner PA-C /[id number]
[2021-04-18] MEDS: Rosuvastatin 10 MG Tab PO SCH (20:25)
[2021-04-18] MEDS: Aspirin 81 MG Tab.Chew PO SCH (20:25)
[2021-04-19] MEDS: Linezolid 600 MG in Premix Bag 1 BAG IV SCH (03:59)
[2021-04-19] MEDS: Meropenem 1 GM in Sodium Chloride 0.9% 100 ML IV SCH ×3 (05:59→21:20)
[2021-04-19] MEDS: Pantoprazole 40 MG Tab.CR PO SCH ×2 (07:35→16:46)
[2021-04-19] MEDS: Docusate Sodium 100 MG Cap PO PRN (07:38)
[2021-04-19] MEDS: Losartan 50 MG Tab PO SCH (08:47)
[2021-04-19] MEDS: Chlorthalidone 25 MG Tab PO SCH (08:47)
[2021-04-19] MEDS: Lactobacillus Rhamnosus GG (Probiotic) Cap PO SCH ×2 (08:48→21:41)
[2021-04-19] MEDS: Ciprofloxacin in D5W 400 MG in Premix Bag 1 BAG IV SCH ×2 (15:35)
[2021-04-19] MEDS: Aspirin 81 MG Tab.Chew PO SCH (21:41)
[2021-04-19] MEDS: Rosuvastatin 10 MG Tab PO SCH (21:41)
[2021-04-19] MEDS: Dextrose 5%-Lactated Ringers 1,000 ML IV SCH (23:44)
[2021-04-20] MEDS: Ciprofloxacin in D5W 400 MG in Premix Bag 1 BAG IV SCH ×4 (03:17→14:52)
[2021-04-20] MEDS: Meropenem 1 GM in Sodium Chloride 0.9% 100 ML IV SCH ×3 (05:26→21:13)
[2021-04-20] MEDS: Pantoprazole 40 MG Tab.CR PO SCH ×2 (07:12→16:21)
[2021-04-20] MEDS: Chlorthalidone 25 MG Tab PO SCH (08:50)
[2021-04-20] MEDS: Losartan 50 MG Tab PO SCH (08:50)
[2021-04-20] MEDS: Lactobacillus Rhamnosus GG (Probiotic) Cap PO SCH ×2 (08:50→20:32)
[2021-04-20] MEDS ORDERED: Sodium Chloride 0.9% 1,000 ML IV SCH (09:00)
[2021-04-20] MEDS ORDERED: VANCOMYCIN SCH ×2 (09:00)
[2021-04-20] MEDS ORDERED: SODIUM CHLORIDE 0.9% SCH ×2 (09:00)
[2021-04-20] MEDS: VANCOMYCIN SCH ×4 (10:30→20:29)
[2021-04-20] MEDS: SODIUM CHLORIDE 0.9% SCH ×4 (10:30→20:29)
[2021-04-20] MEDS: Aspirin 81 MG Tab.Chew PO SCH (20:32)
[2021-04-20] MEDS: Rosuvastatin 10 MG Tab PO SCH (20:32)
[2021-04-21] MEDS: Ciprofloxacin in D5W 400 MG in Premix Bag 1 BAG IV SCH ×2 (02:49)
[2021-04-21] MEDS: Meropenem 1 GM in Sodium Chloride 0.9% 100 ML IV SCH (05:11)
[2021-04-21] MEDS: Pantoprazole 40 MG Tab.CR PO SCH (07:55)
[2021-04-21] MEDS: Chlorthalidone 25 MG Tab PO SCH (09:10)
[2021-04-21] MEDS: Losartan 50 MG Tab PO SCH (09:10)
[2021-04-21] MEDS: Lactobacillus Rhamnosus GG (Probiotic) Cap PO SCH (09:11)
[2021-04-21] MEDS: SODIUM CHLORIDE 0.9% SCH ×4 (09:16→13:18)
[2021-04-21] MEDS: VANCOMYCIN SCH ×4 (09:16→13:18)
[2021-04-21] MEDS: Docusate Sodium 100 MG Cap PO PRN (09:16)
--- NOTE | 2021-04-21 15:34 | PN ---
DATE OF SERVICE: 04/19/2021 The patient has been afebrile with stable vital signs. The TYRELL #2 still has a little bit purulence but decrease in volume, and we will irrigate that with Zyvox-containing saline solution Staph epidermidis, alpha Strep, and Strep viridans. We will discontinue the IV Zyvox and add Cipro IV to cover the Staph epidermidis. The initial Gram stain also had Gram-negative rods, and given this, we would continue the meropenem as well at this point. Errol Hicks MD /[id number]
--- NOTE | 2021-04-21 15:54 | PN ---
DATE OF SERVICE: 04/20/2021 The patient has been afebrile with stable vital signs. The irrigations into the TYRELL #2 appeared to be cleaned out of the debris. I will continue do the dressing changes and irrigations today. He may be ready for discharge home tomorrow. Errol Hicks MD /[id number]
--- NOTE | 2021-04-21 19:08 | DISCH ---
ADMISSION DIAGNOSES: 1. Fever. 2. Intraabdominal abscess. 3. Status post Nkechi-en-Y gastric bypass surgery. 4. Unspecified surgical malabsorption. 5. B12 deficiency. 6. Vitamin D deficiency. 7. Obstructive sleep apnea. 8. Essential hypertension. DISCHARGE DIAGNOSES: 1. Exploratory laparotomy with drainage of intraabdominal abscess. 2. Closure of fascial dehiscence. POSTOPERATIVE DIAGNOSES: 1. Intraabdominal abscess with associated fascial dehiscence. 2. Date of procedure: 04/16/2021. Surgeon: Errol Hicks MD. HISTORY: Iván Aguilar is a pleasant 60-year-old male who presented to the clinic on 04/15/2021, who had an open Nkechi-en-Y gastric bypass surgery on 03/25/2021. When he came into the clinic, he had a temperature of 101.2, dull headache, chills, nausea, and extreme fatigue. He was directly admitted to the hospital. A CT showed possible abscess. He was started on IV antibiotics. Potassium was 2.9. This was replaced by IV potassium. After preoperative evaluation and discussion of possible risks and possible complications, he wished to proceed with surgical procedure. HOSPITAL COURSE: He had his surgical procedure on 04/16/2021. He had no operative complications. He was treated with IV antibiotics. On , his incision was left open, so his open incision was packed and dressed twice a day. He was started on a step 3 diet. Labs were monitored. On 04/18/2021, vital signs were stable. His TYRELL drains were running a cloudy drainage, and over the weekend, he was started on vancomycin put directly into the TYRELL drain. Vital signs have been stable. Labs have looked good. Oral intake adequate, output adequate. He was having no pain. His daughter, Erik, along with himself was taught how to put the vancomycin in the TYRELL drain and to strip, empty, measure, and record TYRELL drainage and color 4 times a day. Iván was able to be discharged to home without any complications. PHYSICAL EXAMINATION: GENERAL: Iván Aguilar is a pleasant 60-year-old male. VITAL SIGNS: Height is 5 feet 10 inches, weight is 304 pounds. TPR is 97, 64, 18, blood pressure 129/67. HEENT: Negative. NECK: Supple. HEART: Regular rate and rhythm. LUNGS: Clear. ABDOMEN: Open incision. Dressing dry and intact. TYRELL drains as above, 1 is draining a light corcoran color, TYRELL drain #2 is draining a kind of a light brown milky drainage. EXTREMITIES: Without peripheral edema. DISPOSITION: Discharged to home. CONDITION: Stable and improving. FOLLOWUP: He is to follow up with Angela Conner PA-C, on 04/23/2021, at 8:30 a.m. HOME MEDICATIONS: 1. Cipro 500 mg oral twice daily for 5 days, #10. 2. He also was given a written prescription for vancomycin 2.5 g mixed in 500 mL of normal saline and to give 20 mL to put in the TYRELL drain twice daily for 10 days. 3. Tylenol 650 mg every 4 hours p.r.n. pain. 4. He is to resume his home medications;. a. Crestor 5 mg at bedtime. b. Aspirin 81 mg at bedtime. c. Chlorthalidone 25 mg oral daily. d. Losartan 100 mg oral daily. e. Zofran 4 mg sublingual every 4 hours p.r.n. nausea. f. Multivitamin 1 twice daily chewable. g. Vitamin B12 1000 mcg sublingual daily. h. Calcium citrate chewable 1 twice daily. DIET: Step 3 gastric bypass diet. Drink 8 to 10 glasses of water a day. ACTIVITY: No lifting greater than 10 pounds for 6 weeks. OTHER ACTIVITY: Walk 6 times daily inside your home unless walking outside have someone with you. Driving: May drive. May shower. DISCHARGE INSTRUCTIONS: Notify provider if any fever, increased pain, swelling, redness, drainage. Keep site clean and dry. Pack and change dressing on abdomen twice daily. Put vancomycin 2.5 g in TYRELL tubing twice a day. SPECIAL INSTRUCTIONS: 1. Use incentive spirometer 10 times every hour while awake. 2. Strip, empty, measure, and record color and amount of TYRELL drains 4 times a day, bring record of drainage to clinic appointment. /[id number]
--- NOTE | 2021-04-22 12:52 | OR ---
DATE OF PROCEDURE: 04/16/2021 SURGEON: Errol Hicks MD PREOPERATIVE DIAGNOSIS: Subcutaneous incisional infection with possible intraabdominal component. POSTOPERATIVE DIAGNOSIS: Intraabdominal abscess associated with extension into the subcutaneous tissue and overlying incision with associated fascial dehiscence. OPERATIVE PROCEDURE: Exploratory laparotomy with: 1. Drainage of intraabdominal abscess (74811). 2. Closure of fascial dehiscence (50794). ANESTHESIA: General. INDICATIONS FOR PROCEDURE: A 60-year-old recently status post a major revisional procedure for bariatric surgery who presents after having some postoperative bleeding with some infection involving the subcutaneous tissue in the upper midline incision. This drained to some extent earlier today spontaneously. The CT scan is suggestive of some possible intraabdominal component. Plan is to proceed with an exploration of the wound and laparotomy necessary. Potential risks including bleeding, infection, injury to underlying viscera, possible injury to the bowel or development of small bowel fistula were all reviewed, and the patient wishes to proceed. DETAILS OF PROCEDURE: The patient was taken to the operating room and placed in a supine position. After general endotracheal anesthesia was induced, a Cisneros catheter was inserted and the abdomen prepped and draped. The previous incision was then reopened. This was an upper midline incision and some additional cultures were obtained. Examination of the wound examined clearly showed some purulence coming from below the fascia through an area of fascial dehiscence. This was opened somewhat further enough to allow adequate drainage in that area. The abscess cavity intra-abdominally was then extended posteriorly underneath the left lobe of liver and this was evacuated. The upper extent of this appeared to be the upper aspect of the posterior aspect of the left lobe of liver and this likely would have been related to some of the postoperative bleeding that the patient had at the previous procedure. The area was irrigated with meropenem and Zyvox containing saline solution until the return was fairly clear. Two Cliff-Lynn drains were then placed one on each side of the incision and into the area of the intraabdominal abscess. The fascial dehiscence was then closed with #2 Vicryl stitch and the skin and subcutaneous tissue packed open with iodoform gauze. The patient was taken to the recovery room in satisfactory condition. There were no evident complications. Errol Hicks MD /[id number]
== END 2021-04-21 12:50 | disposition home or self-care (01) | DRG 711 ==
LOC: JP.ICU 13:08 → JP.MS 22:41
PROVIDERS: ADMIT Surgery; ATTEND Physician Assistant Medical
PROC: 0W9G00Z Drainage of Peritoneal Cavity with Drainage Device, Open Approach (ICD-10-PCS; principal; 2021-04-16)
DX: T81.49XA Infection following a procedure, other surgical site, initial encounter (principal); K65.1 Peritoneal abscess; Y83.8 Other surgical procedures as the cause of abnormal reaction of the patient, or of later complication, without mention of misadventure at the time of the procedure; Y92.89 Other specified places as the place of occurrence of the external cause; Z98.84 Bariatric surgery status; G47.33 Obstructive sleep apnea (adult) (pediatric); I10 Essential (primary) hypertension; E55.9 Vitamin D deficiency, unspecified; T81.31XA Disruption of external operation (surgical) wound, not elsewhere classified, initial encounter; K90.9 Intestinal malabsorption, unspecified; E53.8 Deficiency of other specified B group vitamins
CPT/HCPCS: 36415; 74177; 80053; 83735; 84100; 85025; 85027; 87070; 87075; 87077; 87186; 87205; A9270-GY; C9113; J0330; J0744; J1100; J1170; J2020; J2185; J2405; J2704; J2710; J3010; J3370; J3411; J3475; J3480; J3490; J7120; J7121; Q9967